=== PATIENT | male | born 1995 ===

== ENCOUNTER 2018-05-19 22:46 | Emergency (ER) | payer MEDICAID ==
[2018-05-19 22:58] VITALS: BP 144/90; PULSE 82; RESP 18; TEMP 98.7; O2SAT 99
--- NOTE | 2018-05-19 23:25 | ED PDOC ---
HPI: Headache Time Seen by Provider: 05/19/18 23:13 Chief Complaint (Nursing): Headache History Per: Patient History/Exam Limitations: no limitations Onset/Duration Of Symptoms: Hrs Current Symptoms Are (Timing): Better Quality: Pressure Additional Complaint(s): No PMHx presenting with headache, started gradual onset at 6PM, L sided, describes as pulsating and pressure-like. Not maximal in onset, nonthunderclap. States he took ASA and advil without relief until now, states that he's starting to feel better. Denies visual changes, no weakness, numbness , tingling, loss of function. No neck stiffness, fevers, chills. States he thinks it may have to do with poor dentition, denies any dental pain or complaint currently. PMD: Shelton Jovel MD Past Medical History Reviewed: Historical Data, Nursing Documentation, Vital Signs Vital Signs: Last Vital Signs Temp 98.7 F 05/19/18 22:54 Pulse 82 05/19/18 22:54 Resp 18 05/19/18 22:54 BP 144/90 05/19/18 22:54 Pulse Ox 99 05/19/18 22:54 - Medical History PMH: No Chronic Diseases - Surgical History Surgical History: No Surg Hx - Family History Family History: States: Hypertension - Home Medications Home Medications: Ambulatory Orders Medication Instructions Recorded Aspirin/Acetaminophen/Caffeine 1 each PO Q8 PRN #30 tablet 05/19/18 [Excedrin Migraine Geltab] - Allergies Allergies/Adverse Reactions: Allergies Allergy/AdvReac Type Severity Reaction Status Date / Time No Known Allergies Allergy Verified 05/19/18 22:54 Review of Systems ROS Statement: Except As Marked, All Systems Reviewed And Found Negative Neurological: Positive for: Headache. Negative for: Weakness, Numbness, Confusion, Seizures, Altered Mental Status Physical Exam - Reviewed Nursing Documentation Reviewed: Yes Vital Signs Reviewed: Yes - Physical Exam Appears: Positive for: Well, Non-toxic, No Acute Distress Head Exam: Positive for: ATRAUMATIC, NORMAL INSPECTION, NORMOCEPHALIC Skin: Positive for: Normal Color, Warm, DRY Eye Exam: Positive for: EOMI, Normal appearance, PERRL ENT: Positive for: Normal ENT Inspection, Other (No significant dental abnormality) Neck: Positive for: Normal, Painless ROM Cardiovascular/Chest: Positive for: Regular Rate, Rhythm Respiratory: Positive for: CNT, Normal Breath Sounds Gastrointestinal/Abdominal: Positive for: Normal Exam, Soft Back: Positive for: Normal Inspection Extremity: Positive for: Normal ROM Neurologic/Psych: Positive for: Alert, popcorn attendant II-XII, Oriented, Cerebellar Tests ( Normal), Gait (Normal). Negative for: Motor/Sensory Deficits, Aphasia, Facial Droop - ECG O2 Sat by Pulse Oximetry: 99 Medical Decision Making Medical Decision MakinPM Patient presenting with headache, throbbing --Very well appearing, normal vitals, nonfocal exam --DDx: migraine, tension MADRID, less likely temporal arteritis 1200 --CT negative --Patient reports further pain relief --Advised excedrin for pain relief as needed and followup with PMD/neurolgoy --Very well appearing upon discharge Disposition - Clinical Impression Clinical Impression: Headache - Disposition Referrals: Jaylen Mejia MD [Medical Doctor] - Disposition: Routine/Home Disposition Time: 00:01 Condition: IMPROVED Prescriptions: Aspirin/Acetaminophen/Caffeine [Excedrin Migraine Geltab] 1 each PO Q8 PRN #30 tablet PRN Reason: Pain, Moderate (4-7) Instructions: Headache, Adult Forms: [facility] (Uz[place])
--- NOTE | 2018-05-20 12:36 | CT ---
Date of service: 05/19/2018 PROCEDURE: CT HEAD WITHOUT CONTRAST. HISTORY: Left-sided headache COMPARISON: None available. TECHNIQUE: Axial computed tomography images were obtained through the head/brain without intravenous contrast. Radiation dose: Total exam DLP = 821.46 mGy-cm. This CT exam was performed using one or more of the following dose reduction techniques: Automated exposure control, adjustment of the mA and/or kV according to patient size, and/or use of iterative reconstruction technique. FINDINGS: HEMORRHAGE: No intracranial hemorrhage. BRAIN: Lopez-white matter differentiation is preserved. There is no mass, mass effect or abnormal extra-axial fluid collection. There is no territorial infarction. The midline sagittal structures are normal. VENTRICLES: The ventricles are normal in size, shape and configuration. CALVARIUM: Unremarkable. PARANASAL SINUSES: Predominantly clear. MASTOID AIR CELLS: Predominantly clear. OTHER FINDINGS: None. IMPRESSION: No acute intracranial abnormality. A preliminary report was provided by [facility].
== END 2018-05-20 00:26 | disposition home or self-care (01) ==
LOC: H.ER 22:46
DX: R51 Headache (principal)